=== PATIENT | male | born 1945 | race Caucasian/White ===

== ENCOUNTER 2016-09-19 09:10 | Emergency (ER) | payer MEDICARE, BC ==
[~2016-09-19] VITALS: Ht 182.9 cm; Wt 79.5 kg
[~2016-09-19 09:10] MED LIST: ASPIRIN 81M81 MG/TA2 PO; DUO-KAPS1 CAP PO; NATURAL E400 IU PO; NORCO 325 MG-51 TAB PO; OMEGA 31000 MG PO; TENORMIN 5050 MG/TAB PO; VITAMIN C500 MG PO; VITAMIN D 400400 IU PO
[2016-09-19 09:14] VITALS: PULSE 75; TEMP 97.6
[2016-09-19 10:20] VITALS: BP 158/82
== END 2016-09-19 10:20 | disposition home or self-care (01) ==
LOC: COL.ER 09:10
DX: R04.0 Epistaxis (principal); F17.210 Nicotine dependence, cigarettes, uncomplicated; Z79.82 Long term (current) use of aspirin

== ENCOUNTER 2020-02-22 07:38 | Day surgery (SDC) | payer MEDICARE, BC ==
[2020-02-22] VITALS (673 sets, daily range): BP systolic 117–183; BP diastolic 75–99; PULSE 60–77; TEMP 96.3–98.2; O2SAT 80–100
[~2020-02-22] VITALS: Ht 185.4 cm; Wt 73.4 kg
[~2020-02-22 07:38] MED LIST changes: +BETAPACE 80MG80 MG PO; +ELIQUIS 5MG PO; +FISH OIL 1000MG1 CAP PO; +OMNICEF 300MG300 MG PO; -VITAMIN C500 MG PO; +VITAMINC1000TA PO
[2020-02-22] MEDS ORDERED: BETAPACE 80MG80 MG PO (08:11)
[2020-02-22 08:13] LABS: HEMATOCRIT 39.2 % (42.0-52.0); HEMOGLOBIN 12.8 g/dl (13.5-18.0); MEAN CELL VOLUME 103 fl (80.0-100.0); MEAN CORPUSCULAR HEMOGLOBIN 34 pg (27.0-31.0); MEAN CORPUSCULAR HGB CONC 33 g/dl (33.0-37.0); PLATELET COUNT 241 K/mm3 (130-400); REDCELL DISTRIBUTION WIDTH-CV 14.1 % (11.5-14.5)
[2020-02-22] MEDS ORDERED: VITAMIN D250 MCG PO (08:13)
[2020-02-22] MEDS ORDERED: B-121000 MCG PO (08:14)
[2020-02-22 08:18] LABS: INR 1.1 (0.8-3.0); PROTHROMBIN TIME 12.3 SECONDS (9.7-12.8)
[2020-02-22 08:25] LABS: ALBUMIN 3.7 gm/dL (3.5-5.0); BILIRUBIN,TOTAL 0.9 mg/dL (0.0-1.0); CALCIUM 9.3 mg/dL (8.4-10.2); CREATININE, serum 0.83 (0.66-1.25); MAGNESIUM 2.2 mg/dL (1.6-2.3); POTASSIUM 4.7 mmol/L (3.4-5.0); TOTAL PROTEIN 6.5 gm/dL (6.4-8.2)
--- NOTE | 2020-02-22 10:28 | NUR ---
SEE MERGE DOCUMENTATION FOR MEDICATION ADMINISTRATION TIMES AND INTRA/POST PROCEDURE SEDATION ASSESSMENTS. RIGHT RADIAL BARBEAU TEST POSITIVE.
--- NOTE | 2020-02-22 20:00 | NUR ---
Patient resting in bed. No complaints of pain or SOA. Vitals obtained and remain stable. Assessment complete, see shift assessment for details. Patient's cath sites remain the same as at shift change. Small amount of drainage at the wrist site under tegaderm. Some bruising noted, but no active bleeding or hematoma. Femoral site is soft with slight tenderness. Only one drop of blood on the dressing, which is stable. Will continue to monitor. Call light within reach.
[2020-02-23] VITALS (647 sets, daily range): BP systolic 122–150; BP diastolic 73–100; PULSE 69–90; TEMP 97.9–98.2; O2SAT 86–100
[2020-02-23 05:05] LABS: BASO % 0.1 % (0.0-2.0); EOS # 0.2 (0.0-0.7); EOS % 2.2 % (0-4.0); GRAN # 8.1 (1.4-6.5); GRAN % 75.4 % (42.2-75.2); HEMATOCRIT 37.4 % (42.0-52.0); HEMOGLOBIN 12.6 g/dl (13.5-18.0); LYMPH # 1.1 (1.2-3.4); LYMPH % 10.4 % (20.0-51.0); MEAN CELL VOLUME 101 fl (80.0-100.0); MEAN CORPUSCULAR HEMOGLOBIN 34 pg (27.0-31.0); MEAN CORPUSCULAR HGB CONC 34 g/dl (33.0-37.0); MEAN PLATELET VOLUME 11.7 fl (7.4-10.4); MONO # 1.2 (0.1-0.6); MONO % 11.5 % (1.7-9.3); PLATELET COUNT 219 K/mm3 (130-400); RED BLOOD COUNT 3.71 M/mm3 (4.20-5.60); REDCELL DISTRIBUTION WIDTH-CV 13.7 % (11.5-14.5)
[2020-02-23 05:14] LABS: CALCIUM 8.8 mg/dL (8.4-10.2); CREATININE, serum 0.76 (0.66-1.25); POTASSIUM 4.3 mmol/L (3.4-5.0)
--- NOTE | 2020-02-23 07:02 | NUR ---
Bedside report given to LATRICE Vizcarra
--- NOTE | 2020-02-23 12:22 | NUR ---
stopped by but nothing needed at this time.
[2020-02-23] MEDS ORDERED: LIPITOR 80MG80 MG PO (12:26)
[2020-02-23] MEDS ORDERED: BRILINTA90 MG PO (12:26)
[2020-02-23] MEDS ORDERED: ASPIRIN E.C. 8181 MG PO (12:27)
--- NOTE | 2020-02-23 13:00 | NUR ---
Patient escorted out of facility with belongings and discharge packet in hand.
== END 2020-02-23 13:00 | disposition home or self-care (01) ==
LOC: COL.CAR 07:38 → ICU 11:45 → COL.CAR 02-23 13:00
PROVIDERS: Internal Medicine Cardiovascular Disease
DX: I25.110 Atherosclerotic heart disease of native coronary artery with unstable angina pectoris (principal); R94.39 Abnormal result of other cardiovascular function study; Z79.82 Long term (current) use of aspirin; Z79.01 Long term (current) use of anticoagulants
CPT/HCPCS: OP; C9600; J0583; J1644; J2250; J3010

== ENCOUNTER 2020-11-05 14:29 | Inpatient (IN) | payer MEDICARE, BC ==
[2020-11-05] VITALS (260 sets, daily range): BP systolic 150–157; BP diastolic 88–105; PULSE 69–130; TEMP 98.1; O2SAT 92–100
[~2020-11-05] VITALS: Ht 182.9 cm; Wt 76.3 kg
[~2020-11-05 14:29] MED LIST changes: +ASPIRIN E.C. 8181 MG PO; +B-121000 MCG PO; +BRILINTA90 MG PO; +LIPITOR 80MG80 MG PO; +VITAMIN D250 MCG PO
[2020-11-05 14:47] LABS: BASO % 0.2 % (0.0-2.0); EOS # 0.2 (0.0-0.7); EOS % 1.9 % (0-4.0); GRAN # 8.6 (1.4-6.5); GRAN % 71.6 % (42.2-75.2); HEMATOCRIT 50.8 % (42.0-52.0); LYMPH # 1.8 (1.2-3.4); LYMPH % 14.7 % (20.0-51.0); MEAN CELL VOLUME 104 fl (80.0-100.0); MEAN CORPUSCULAR HEMOGLOBIN 35 pg (27.0-31.0); MEAN CORPUSCULAR HGB CONC 34 g/dl (33.0-37.0); MEAN PLATELET VOLUME 11.8 fl (7.4-10.4); MONO # 1.4 (0.1-0.6); MONO % 11.2 % (1.7-9.3); PLATELET COUNT 225 K/mm3 (130-400); RED BLOOD COUNT 4.88 M/mm3 (4.20-5.60); REDCELL DISTRIBUTION WIDTH-CV 16.1 % (11.5-14.5)
[2020-11-05 15:05] LABS: ALANINE AMINOTRANSFERASE 22 U/L (4-49); ALBUMIN 4.7 gm/dL (3.5-5.0); ALKALINE PHOSPHATASE 73 U/L (50-136); ANION GAP 9 mmol/L (7-16); AST,SGOT 58 U/L (15-37); BLOOD UREA NITROGEN 21 mg/dL (9-20); CALCIUM 9.8 mg/dL (8.4-10.2); CARBON DIOXIDE 24 mmol/L (22-30); CHLORIDE 103 mmol/L (98-107); CREATININE, serum 0.91 (0.66-1.25); GLUCOSE 113 mg/dL (74-106); POTASSIUM 3.9 mmol/L (3.4-5.0); SODIUM 136 mmol/L (137-145); TOTAL PROTEIN 8.2 gm/dL (6.4-8.2)
[2020-11-05 15:34] LABS: INR 1.3 (0.8-3.0); PROTHROMBIN TIME 14.3 SECONDS (9.7-12.8)
[2020-11-05] MEDS ORDERED: PLAVIX 75MG TAB75 MG PO (16:13)
--- NOTE | 2020-11-05 16:51 | NUR ---
RECEIVED REPORTFRBILLY LOZANO RN IN ER. AWAITING ARRIVAL OF PT TO ICU 6.
--- NOTE | 2020-11-05 17:03 | NUR ---
PT ARRIVES TO ICU 6 VIA STRETCHER ON RA. PT AMBULATES SELF TO TOILET THEN TO BED. STEADY GAIT NOTED. PLACED ON BEDSIDE COTNIUOUS MONITOR. VSS, HR IRREGULAR 120-140. SEE GTT FLOWSHEET. CALL LIGHT WITHIN REACH.
--- NOTE | 2020-11-05 17:13 | NUR ---
DR FLAHERTY AT BEDSIDE FOR ASSESSMENT.
[2020-11-05 17:57] LABS: TROPONIN-I < 0.012 ng/mL (0.000-0.035)
[2020-11-05 19:19] LABS: LIPASE 84 U/L (23-300)
[2020-11-06] VITALS (567 sets, daily range): BP systolic 135–160; BP diastolic 76–96; PULSE 60–116; TEMP 98–98.5; O2SAT 83–100
[2020-11-06 05:56] LABS: HEMOGLOBIN 15.7 g/dl (13.5-18.0); MEAN CELL VOLUME 104 fl (80.0-100.0); MEAN CORPUSCULAR HEMOGLOBIN 35 pg (27.0-31.0); MEAN CORPUSCULAR HGB CONC 34 g/dl (33.0-37.0); MEAN PLATELET VOLUME 11.8 fl (7.4-10.4); PLATELET COUNT 189 K/mm3 (130-400); RED BLOOD COUNT 4.44 M/mm3 (4.20-5.60)
[2020-11-06 06:08] LABS: ANION GAP 7 mmol/L (7-16); BLOOD UREA NITROGEN 19 mg/dL (9-20); CALCIUM 9.1 mg/dL (8.4-10.2); CARBON DIOXIDE 27 mmol/L (22-30); CHLORIDE 102 mmol/L (98-107); CREATININE, serum 0.69 (0.66-1.25); GLUCOSE 133 mg/dL (74-106); MAGNESIUM 1.9 mg/dL (1.6-2.3); POTASSIUM 4.3 mmol/L (3.4-5.0); SODIUM 136 mmol/L (137-145)
[2020-11-06 06:21] LABS: TROPONIN-I < 0.012 ng/mL (0.000-0.035)
--- NOTE | 2020-11-06 07:00 | NUR ---
PT AWAKE BUT RESTING IN BED. PT'S VSS. PT IN AFIB BUT DILT DRIP OFF D\T ZEUS. PT NPO FOR POSSIBLE CARDIOVERSION. WILL CONTINUE TO MONITOR.
[2020-11-06 07:01] LABS: BAND 11 % (0-10); LYMPHOCYTE 16 % (20.0-51.0); NEUTROPHILS 62 % (42.0-75.2); PLATELET ESTIMATE NORMAL (NORMAL)
--- NOTE | 2020-11-06 09:43 | NUR ---
Front End Specialist met with the patient to complete intake. The patient lives alone in [place]. The patient denies DME use and is independent. The patient's PCP is Dr. Moulton and patient receives medications from the [place] and locally utilizes [facility]. The patient does not have advanced directives in the EMR but states they are complete and has them at home. His DPOA-HC designates his brother, Deni Daigle ([place], [place]), and nephew, Osito Daigle ([place]). The patient plans to return home at discharge with no concerns about doing so. *Discharge disposition: Home
--- NOTE | 2020-11-06 10:01 | NUR ---
Initial visit; Patient thanked Electrical Maintenance Supervisor for offering God's blessings and keeping him in Electrical Maintenance Supervisor's prayers.
--- NOTE | 2020-11-06 11:23 | NUR ---
TIME OUT PREFORMED WITH AND OSWALD MCNEIL FOR CARDIOVERSION. PT SEDATED BY FINISHER OPERATOR. 1126 PT SHOCKED AT 200J. PT STILL IN AFLUTTER. 1128 PT SHOCKED AT 200J. PT STILL IN AFLUTTER. 1132 AMIO 150MG IV GIVEN PER . 1135 PADS CHANGER PER 'S REQUEST. 1142 AMIO COMPLETED. 1145 PT SHOCKED AT 200JH. PT STILL IN AFLUTTER. 1146 PT SHOCKED AT 200J. PT NOW SR WITH PAC'S. VSS. EKG PERFORMED TO CONFIRM CONVERSION. ORDERED PO AMIO. WILL CONTINUE TO MONITOR.
[2020-11-06] MEDS ORDERED: PACERONE200 MG PO (13:23)
[2020-11-06 16:51] LABS: MUCOUS Present /lpf; PH 6 (5-8); SQUAMOUS EPITHELIAL 0-2 /hpf; URINE APPEARANCE Cloudy; URINE BACTERIA Rare /hpf; URINE BILIRUBIN Negative (NEGATIVE); URINE BLOOD 3+ (NEGATIVE); URINE COLOR Yellow; URINE GLUCOSE 1+ (NEGATIVE); URINE KETONE Negative (NEGATIVE); URINE LEUKOCYTE ESTERASE 1+ (NEGATIVE); URINE NITRATE Negative (NEGATIVE); URINE PROTEIN(semi-quant) 1+ (NEGATIVE); URINE RBC >50 /hpf; URINE UROBILINOGEN >=4.0 mg/dL (NEGATIVE)
[2020-11-06 17:08] LABS: COLLECTION METHOD CLEAN CATCH
--- NOTE | 2020-11-06 18:22 | NUR ---
PT'S HR UP TO 140'S. NOTIFIED. ORDERS RECIEVED FOR IV DILT AND PO METOPROLOL. PT UPDATED ON PLAN.
[2020-11-07] VITALS (297 sets, daily range): BP systolic 88–145; BP diastolic 66–94; PULSE 50–83; TEMP 97.6–97.9; O2SAT 52–100
[2020-11-07 06:12] LABS: HEMOGLOBIN 15.8 g/dl (13.5-18.0); MEAN CELL VOLUME 106 fl (80.0-100.0); MEAN CORPUSCULAR HEMOGLOBIN 36 pg (27.0-31.0); MEAN CORPUSCULAR HGB CONC 34 g/dl (33.0-37.0); MEAN PLATELET VOLUME 11.5 fl (7.4-10.4); PLATELET COUNT 203 K/mm3 (130-400); RED BLOOD COUNT 4.42 M/mm3 (4.20-5.60); REDCELL DISTRIBUTION WIDTH-CV 16.1 % (11.5-14.5)
[2020-11-07 06:28] LABS: CALCIUM 9.6 mg/dL (8.4-10.2); CREATININE, serum 0.89 (0.66-1.25); POTASSIUM 3.9 mmol/L (3.4-5.0)
[2020-11-07 07:06] LABS: ANISOCYTOSIS 1+; BAND 3 % (0-10); HYPOCHROMIA 1+; LYMPHOCYTE 22 % (20.0-51.0); METAMYELOCYTE 1 % (0-0); NEUTROPHILS 61 % (42.0-75.2); OVALOCYTES 1+; POIKILOCYTOSIS 1+
[2020-11-07 07:07] LABS: PLATELET ESTIMATE NORMAL (NORMAL)
--- NOTE | 2020-11-07 07:15 | NUR ---
Patient awake and sitting on the edge of the bed this morning. Reports feeling "much better" this morning. VS stable. Denies any needs or concerns at this time. Discussed probable cardioversion which will be performed by Dr Rodas. All concerns addressed at this time.
[2020-11-07 09:34] LABS: MAGNESIUM 1.9 mg/dL (1.6-2.3)
[2020-11-07 11:36] LABS: C-REACTIVE PROTEIN 16.1 mg/dL (0.0-0.9)
--- NOTE | 2020-11-07 12:01 | NUR ---
Patient alert and oriented prior to sedation. Patient agrees with proceeding with procedure, and risks of procedure explained.
--- NOTE | 2020-11-07 12:10 | NUR ---
Patient cardioverted three times with no success; continues in A-fib/flutter with a rate of 50's- 60's. Anesthesia and nurse at bedside monitoring patient post sedation. No concerns at this time; will continue to monitor.
--- NOTE | 2020-11-07 15:15 | NUR ---
Patient has asked this nurse multiple times this shift when he can go upstairs and if he can just go home. Explained mulitple times to patient that he is medical status but there are no beds currenltly available. Hospitalist wants to keep him one more night due to his pneumonia. Patient is also refusing to keep monitoring devices on. Has removed ECG leads multiple times. Explained importance of cardiac monitoring especially as he had 3 attempted cardioversions today. Patient agreeable to keeping leads on with a tele box. LATRICE Hernandez spoke with patient and offered to bring him upstairs for a shower while he waits for a room. Patient at this time stated he was leaving and would go AMA. LATRICE Hernandez notified Dr. Kay. Dr. Kay came to see patient and put in discharge orders.
[2020-11-07] MEDS ORDERED: OMNICEF 300MG300 MG PO (15:40)
--- NOTE | 2020-11-07 16:11 | NUR ---
Discharge paperwork given to patient and signed. IV discontinued. Patient alert and oriented upon discharge. Walked with patient down to the patient entrance; discharged with no concerns.
--- NOTE | 2020-11-07 19:43 | NUR ---
Unable to find telemetry box after patient discharged. Called patient at home and confirmed that he had accidently taken it home. [place] of town. Patient said that he would bring it back but it would probably be Tuesday . Instructed to drop it off in the ER. blueprinting and photocopy supervisor notified.
== END 2020-11-07 16:11 | disposition home or self-care (01) | DRG 308 ==
LOC: COL.ER 14:29 → ICU 15:29
PROVIDERS: Emergency Medicine; Nurse Practitioner Primary Care; ADMIT Internal Medicine
PROC: 5A2204Z Restoration of Cardiac Rhythm, Single (ICD-10-PCS; principal; 2020-11-06)
DX: I48.91 Unspecified atrial fibrillation (principal); A41.9 Sepsis, unspecified organism; J18.9 Pneumonia, unspecified organism; N39.0 Urinary tract infection, site not specified; I25.10 Atherosclerotic heart disease of native coronary artery without angina pectoris; Z66 Do not resuscitate; R00.0 Tachycardia, unspecified; F17.210 Nicotine dependence, cigarettes, uncomplicated
CPT/HCPCS: 99223-AI; 99233-AI; 99239; J0282; J0360; J0696; J2704; J7060

== ENCOUNTER 2022-02-17 08:26 | Emergency (ER) | payer MEDICARE, BC ==
[~2022-02-17] VITALS: Ht 182.9 cm; Wt 77.3 kg
[~2022-02-17 08:26] MED LIST changes: +PACERONE200 MG PO; +PLAVIX 75MG TAB75 MG PO
[2022-02-17 08:27] VITALS: TEMP 97.8
[2022-02-17 08:47] LABS: BASO % 0.3 % (0.0-2.0); EOS % 0.3 % (0.0-4.0); GRAN # 7.6 K/mm3 (1.4-6.5); GRAN % 76.3 % (42.2-75.2); HEMATOCRIT 37.8 % (42.0-52.0); LYMPH # 1.2 K/mm3 (1.2-3.4); LYMPH % 11.6 % (20.0-51.0); MEAN CELL VOLUME 117 fl (80.0-100.0); MEAN CORPUSCULAR HEMOGLOBIN 40 pg (27-31); MEAN CORPUSCULAR HGB CONC 34 g/dl (33.0-37.0); MEAN PLATELET VOLUME 12.4 fl (7.4-10.4); MONO # 1.1 K/mm3 (0.1-0.6); MONO % 10.9 % (1.7-9.3); PLATELET COUNT 174 K/mm3 (130-400); RED BLOOD COUNT 3.22 M/mm3 (4.20-5.60); REDCELL DISTRIBUTION WIDTH-CV 14.1 % (11.5-14.5)
[2022-02-17 08:59] LABS: INR 2.7 (0.8-3.0); PROTHROMBIN TIME 31.4 SECONDS (9.7-12.8)
[2022-02-17 09:02] LABS: PARTIAL THROMBOPLASTIN TIME 32.7 SECONDS (26.0-37.0)
[2022-02-17 09:10] LABS: ALBUMIN 3.2 gm/dL (3.4-4.8); BILIRUBIN,TOTAL 2.4 mg/dL (0.2-1.2); CALCIUM 9.4 mg/dL (8.4-10.2); CREATININE, serum 1.29 mg/dL (0.72-1.25); POTASSIUM 4.2 mmol/L (3.5-4.5); TOTAL PROTEIN 6.1 gm/dL (6.2-8.1)
[2022-02-17 09:11] LABS: TROPONIN-I 0.013 ng/mL (0.00-0.033)
[2022-02-17] MEDS ORDERED: ASPERCREME1 EACH TP (11:02)
[2022-02-17 11:40] VITALS: BP 109/79; PULSE 102
== END 2022-02-17 11:40 | disposition home or self-care (01) ==
LOC: COL.ER 08:26
PROVIDERS: Emergency Medicine
DX: S09.90XA Unspecified injury of head, initial encounter (principal); S22.31XA Fracture of one rib, right side, initial encounter for closed fracture; S00.01XA Abrasion of scalp, initial encounter; E86.0 Dehydration; I48.91 Unspecified atrial fibrillation; R79.89 Other specified abnormal findings of blood chemistry; R74.01 Elevation of levels of liver transaminase levels; E80.7 Disorder of bilirubin metabolism, unspecified; Z79.01 Long term (current) use of anticoagulants; W18.30XA Fall on same level, unspecified, initial encounter
CPT/HCPCS: A9284; J7030